=== PATIENT | female | born 1985 | race American Indian/Alaskan Native ===

== ENCOUNTER 2017-03-28 14:03 | Emergency (ER) | payer SELFPAY ==
[2017-03-28 14:53] VITALS: BP 116/66
--- NOTE | 2017-03-28 16:02 | Emergency Department Report ---
Entered by TRINY LINARES, acting as scribe for ISABEL RAMOS FNP. ED ENT HPI - General Chief complaint: Headache Stated complaint: HEAD/EAR/EYE PAIN Time Seen by Provider: 03/28/17 15:30 Source: patient Mode of arrival: Ambulatory Limitations: No Limitations - History of Present Illness Initial comments: 31 y/o female presents to the ED c/o tooth pain x 3 days. Associated symptoms include headache but she denies fever and chills. Pain is described as sharp and 10/10 on a severity scale. No alleviating factors despite taking OTC meds and no aggravating factors. Allergic to celecoxib and phenytoin sodium. MD complaint: tooth pain Onset/Timin -: days(s) Location: tooth # (18) Severity: severe Severity scale (0 -10): 10 Quality: sharp Consistency: constant Improves with: none Worsens with: none Context- Dental: other (cracked tooth #18) Associated Symptoms: other (headache, denies: fever, chills) - Related Data Previous Rx's Medication Instructions Recorded Last Taken Type Sulfamethoxazole/Trimethoprim 1 each PO BID #14 tablet 05/17/15 Unknown Rx [Bactrim DS TAB] Acetaminophen/Codeine [Tylenol 1 tab PO Q6H PRN #20 tab 03/28/17 Unknown Rx /Codeine # 3 tab] Penicillin Vk [Veetids TAB] 250 mg PO QID #28 tablet 03/28/17 Unknown Rx Allergies Allergy/AdvReac Type Severity Reaction Status Date / Time celecoxib [From Celebrex] Allergy Rash Verified 05/16/15 19:13 phenytoin sodium Allergy Rash Verified 05/16/15 19:13 [From Dilantin] phenytoin sodium extended Allergy Rash Verified 05/16/15 19:13 [From Dilantin] ED Dental HPI - General Chief complaint: Headache Stated complaint: HEAD/EAR/EYE PAIN Time Seen by Provider: 03/28/17 15:28 Source: patient Mode of arrival: Ambulatory Limitations: No Limitations - History of Present Illness MD complaint: tooth pain Onset/Timin -: days(s) Severity: severe Quality: sharp Consistency: constant Improves with: none Worsens with: none Context- Dental: other (cracked tooth #18) Dental Associated Symptons: Yes: Headache - Related Data Previous Rx's Medication Instructions Recorded Last Taken Type Sulfamethoxazole/Trimethoprim 1 each PO BID #14 tablet 05/17/15 Unknown Rx [Bactrim DS TAB] Acetaminophen/Codeine [Tylenol 1 tab PO Q6H PRN #20 tab 03/28/17 Unknown Rx /Codeine # 3 tab] Penicillin Vk [Veetids TAB] 250 mg PO QID #28 tablet 03/28/17 Unknown Rx Allergies Allergy/AdvReac Type Severity Reaction Status Date / Time celecoxib [From Celebrex] Allergy Rash Verified 05/16/15 19:13 phenytoin sodium Allergy Rash Verified 05/16/15 19:13 [From Dilantin] phenytoin sodium extended Allergy Rash Verified 05/16/15 19:13 [From Dilantin] ED Review of Systems Comment: All other systems reviewed and negative Constitutional: denies: chills, fever Eyes: denies: eye pain, eye discharge, vision change ENT: dental pain Respiratory: denies: cough, shortness of breath, wheezing Cardiovascular: denies: chest pain, palpitations Endocrine: no symptoms reported Gastrointestinal: denies: abdominal pain, nausea, diarrhea Genitourinary: denies: urgency, dysuria, discharge Musculoskeletal: denies: back pain, joint swelling, arthralgia Skin: denies: rash, lesions Neurological: headache Psychiatric: denies: anxiety, depression Hematological/Lymphatic: denies: easy bleeding, easy bruising ED Past Medical Hx - Past Medical History Previous Medical History?: Yes Hx Seizures: Yes (No meds) - Surgical History Past Surgical History?: No - Social History Smoking Status: Current Every Day Smoker Substance Use Type: Alcohol - Medications Home Medications: Home Medications Medication Instructions Recorded Confirmed Last Taken Type Sulfamethoxazole/Trimethoprim 1 each PO BID #14 tablet 05/17/15 Unknown Rx [Bactrim DS TAB] Acetaminophen/Codeine [Tylenol 1 tab PO Q6H PRN #20 tab 03/28/17 Unknown Rx /Codeine # 3 tab] Penicillin Vk [Veetids TAB] 250 mg PO QID #28 tablet 03/28/17 Unknown Rx ED Physical Exam - General Limitations: No Limitations General appearance: alert, in no apparent distress - Head Head exam: Present: atraumatic, normocephalic, normal inspection - Eye Eye exam: Present: normal appearance - ENT ENT exam: Present: mucous membranes moist, other (tooth #18 cracked) - Neck Neck exam: Present: normal inspection - Respiratory Respiratory exam: Present: normal lung sounds bilaterally. Absent: respiratory distress - Cardiovascular Cardiovascular Exam: Present: regular rate, normal rhythm, normal heart sounds. Absent: systolic murmur, diastolic murmur, rubs, gallop - GI/Abdominal GI/Abdominal exam: Present: soft, normal bowel sounds - Extremities Exam Extremities exam: Present: normal inspection - Back Exam Back exam: Present: normal inspection - Neurological Exam Neurological exam: Present: alert, oriented X3 - Psychiatric Psychiatric exam: Present: normal affect, normal mood - Skin Skin exam: Present: warm, dry, intact, normal color. Absent: rash ED Course Vital Signs 03/28/17 14:47 Temperature 98.3 F Pulse Rate 74 Respiratory 16 Rate Blood Pressure 116/66 O2 Sat by Pulse 100 Oximetry ED Medical Decision Making - Medical Decision Making 31 year old female patient presents today with tooth pain. Patient is in no acute distress at this time. She will be discharged home with antibiotic and pain medication is encouraged to follow up with a primary care provider. She is encouraged to return to the emergency room for any worsening symptoms. ED Disposition Clinical Impression: Toothache Disposition: TO HOME OR SELFCARE Is pt being admited?: No Does the pt Need Aspirin: No Condition: Stable Instructions: Toothache (ED) Prescriptions: Acetaminophen/Codeine [Tylenol /Codeine # 3 tab] 1 tab PO Q6H PRN #20 tab PRN Reason: Pain Penicillin Vk [Veetids TAB] 250 mg PO QID #28 tablet Referrals: PRIMARY CARE,MD [Primary Care Provider] - 3-5 Days [facility] [Outside] - 3-5 Days Time of Disposition: 16:01 This documentation as recorded by the MILAGROS oro ELIZABETH,accurately reflects the service I personally performed and the decisions made by RACHEL rose DENETRA L, FNP.
== END 2017-03-28 16:12 | disposition home or self-care (01) ==
LOC: ED 14:03
DX: K08.89 Other specified disorders of teeth and supporting structures (principal); R56.9 Unspecified convulsions; F17.200 Nicotine dependence, unspecified, uncomplicated; Z88.8 Allergy status to other drugs, medicaments and biological substances
CPT/HCPCS: 99282